=== PATIENT | male | born 1990 | race African-American/Black ===

== ENCOUNTER → 2021-10-04 | Outpatient (CLI) | payer OTHER ==
--- NOTE | 2021-10-04 16:35 | RAD ---
EXAMINATION: XR CERVICAL SPINE 2-3V CLINICAL HISTORY: NECK AND LOW BACK PAIN. TECHNIQUE: XR CERVICAL SPINE 2-3V Number of Images/Views: 3 COMPARISON: None FINDINGS: Normal anatomic alignment. No evidence of acute fracture or spondylolisthesis. Disc spaces maintained . Minimal facet arthropathy in the lower cervical spine. No prevertebral soft tissue swelling. IMPRESSION: No acute osseous abnormality involving the cervical spine. Electronically signed by: Jayden Edouard DO (10/04/2021 4:33 PM) [id number]
--- NOTE | 2021-10-04 16:37 | RAD ---
EXAMINATION: XR LUMBAR SPINE 2-3V CLINICAL HISTORY: NECK AND LOW BACK PAIN. TECHNIQUE: XR LUMBAR SPINE 2-3V Number of Images/Views: 3 COMPARISON: None FINDINGS: Normal anatomic alignment. No evidence of acute fracture or spondylolisthesis. Mild disc space narrow ing at L4-5. Minimal facet arthropathy in the lower lumbar spine. SI joints maintained. IMPRESSION: Mild degenerative disc disease at L4-5. Electronically signed by: Jayden Edouard DO (10/04/2021 4:35 PM) [id number]
== END ==
LOC: RAD 14:46
PROVIDERS: ATTEND Anesthesiology Pain Medicine
DX: Z02.71 Encounter for disability determination (principal); M51.36 Other intervertebral disc degeneration, lumbar region; M48.061 Spinal stenosis, lumbar region without neurogenic claudication; M48.8X2 Other specified spondylopathies, cervical region
CPT/HCPCS: 72040; 72100